=== PATIENT | male | born 1975 | race Caucasian/White ===

== ENCOUNTER 2017-03-08 08:55 | Emergency (ER) | payer OTHER ==
[~2017-03-08] VITALS: Ht 182.9 cm; Wt 93.0 kg
[2017-03-08] MEDS ORDERED: CLEOCIN HCL150 MG PO (09:14)
[2017-03-08 09:30] VITALS: BP 165/105
== END 2017-03-08 09:30 | disposition home or self-care (01) ==
LOC: ER 08:55
DX: K04.7 Periapical abscess without sinus (principal); F17.210 Nicotine dependence, cigarettes, uncomplicated